=== PATIENT | male | born 1965 | race Caucasian/White ===

== ENCOUNTER 2016-08-17 18:32 | Emergency (ER) | payer BC ==
--- NOTE | 2016-08-17 19:13 | UC ---
Abdominal Pain Male HPI - HPI Summary HPI Summary: The patient comes in today for: 1. Lower right and left anterior chest pressure and right-sided abdominal pain : Onset: 2 hours ago. Palliative/provocative: Eating makes this worse. Sitting straight makes it worse. There is no radiation to the back. Quality: Pressure sensation of area of chest inferior and lateral to the nipples. Region: Right upper quadrant and right lower quadrant. Severity: "I can't walk upright." Sitting up the pain is 7/10 Time: Constant. Associated symptoms: Previous disease: He has been having mild stomach aches after eating for about 1.5 weeks. HE got back from vacation 5 days ago. He had a mild fever at that time and had fatigue. He lost his appetite. Eating made his pain worse. 15 years ago he had "stomach issues" but he had "hypersensitized stomach." Weight loss: 12 pounds but he had no appetite. Fevers: None known. Vomiting: None. Diarrhea: None. * - History of Current Complaint Chief Complaint: UCAbdominalPain Stated Complaint: ABDOMINAL PAIN Time Seen by Provider: 08/17/16 19:06 Hx Obtained From: Patient, Family/Technical Adjuster - Allergies/Home Medications Allergies/Adverse Reactions: Allergies Allergy/AdvReac Type Severity Reaction Status Date / Time No Known Allergies Allergy Verified 08/17/16 19:53 PMH/Surg Hx/FS Hx/Imm Hx Previously Healthy: Yes Endocrine History Of: Denies: Diabetes, Thyroid Disease, Hyperthyroidism, Hypothyroidism, Dyslipidemia Cardiovascular History Of: Denies: Cardiac Disorders, Hypertension, Pacemaker/ICD, Myocardial Infarction , Congestive Heart Failure, Atrial Fibrillation, Deep Vein Thrombosis, Bleeding Disorders Respiratory History Of: Denies: COPD, Asthma, Bronchitis, Pneumonia, Pulmonary Embolism GI/ History Of: Denies: Gastroesophageal Reflux, Ulcer, Gastrointestinal Bleed, Gall Bladder Disease, Kidney Stones, Diverticulitis, Renal Disease, Urosepsis Neurological History Of: Denies: TIA, CVA, Dementia, Seizures, Migraine Psychological History Of: Denies: Anxiety, Depression, Bipolar Disorder, Schizophrenia, Post Traumatic Stress Disorder Cancer History Of: Denies: Lung Cancer, Colorectal Cancer, Breast Cancer, Prostate Cancer, Cervical Cancer - Surgical History Surgical History: None - Family History Known Family History: Positive: Cardiac Disease Negative: Hypertension - Social History Occupation: Employed Full-time Alcohol Use: Occasionally Substance Use Type: Excessive Caffeine Smoking Status (MU): Never Smoked Tobacco Review of Systems Constitutional: Negative Skin: Negative Eyes: Negative ENT: Negative Respiratory: Negative, Cough - green phlegm. Cardiovascular: Chest Pain Gastrointestinal: Abdominal Pain Genitourinary: Dysuria All Other Systems Reviewed And Are Negative: Yes Physical Exam Triage Information Reviewed: Yes Appearance: Well-Nourished, Pain Distress - He will grimace and lean forward. Vital Signs: Initial Vital Signs Temp 97.6 F 08/17/16 18:43 Pulse 65 08/17/16 18:43 Resp 18 08/17/16 18:43 BP 144/83 08/17/16 18:43 Pulse Ox 100 08/17/16 18:43 Vital Signs Reviewed: Yes Eyes: Positive: Conjunctiva Clear. Negative: Discharge ENT: Positive: Hearing grossly normal. Negative: Pharyngeal erythema, Nasal congestion, Nasal drainage, TM bulging, TM dull, TM red, Tonsillar swelling, Tonsillar exudate Dental: Negative: Gross Decay/Caries @, Dental Fracture @ Neck: Positive: Supple, Nontender, No Lymphadenopathy. Negative: Nuchal Rigidity Respiratory: Positive: Chest non-tender, Lungs clear, No respiratory distress, No accessory muscle use. Negative: Accessory muscle use, Stridor Cardiovascular: Positive: RRR, No Murmur Abdomen Description: Positive: No Organomegaly, Guarding, McBurney's Point Tenderness, Peritoneal Signs - He had rebound in the RLQ. There is mild percussion tenderness. There is mild tenderness of the epigastric area. However, most of the pain is in the lower right quadrant.. Negative: Nontender , Distended Musculoskeletal: Positive: Strength Intact, ROM Intact, No Edema Neurological: Positive: Alert, Muscle Tone Normal Psychological: Positive: Normal Response To Family, Age Appropriate Behavior, Consolable Skin: Negative: rashes, breakdown Abd Pain Male Course/Dx - Differential Dx/Clinical Impression Provider Diagnoses: Abdominal pain, possible appendicitis, pancreatitis. - Physician Notification/Consults Discussed Patient Care With: Dr. Debbie Marcelo Time Discussed With Above Provider: 19:27 Discharge - Discharge Plan Condition: Stable Disposition: AGAINST MEDICAL ADVICE Additional Instructions: Patient is to go directly (via private car) to the [facility].
[2016-08-17 19:51] VITALS: BP 138/88
== END 2016-08-17 19:30 | disposition left against medical advice (07) ==
LOC: UCEAST 18:32
DX: R10.9 Unspecified abdominal pain (principal)
CPT/HCPCS: 99212; G0463

== ENCOUNTER 2016-08-22 11:17 | Inpatient (IN) | payer BC ==
[2016-08-22] MEDS ORDERED: NS 0.9% 1000 ML* 1,000 ML IV ONE (12:41)
[2016-08-22] MEDS ORDERED: HYDROmorphone* 1 MG/ML 1 ML SYR IV ONE (12:41)
[2016-08-22] MEDS ORDERED: Ondansetron INJ* 2 MG/ML VIAL IV ONE (12:41)
[2016-08-22 13:30] LABS: Hematocrit 41 % (42-52); Hemoglobin 14.2 g/dl (14.0-18.0); Mean Corpuscular HGB Conc 35 g/dl (31-36); Mean Corpuscular Hemoglobin 31 pg (27-31); Mean Corpuscular Volume 89 fL (80-94); Mean Platelet Volume 7 um3 (7.4-10.4); Red Cell Distribution Width 13 % (10.5-15); White Blood Count 15.1 10^3/ul (3.5-10.8)
[2016-08-22 13:32] LABS: Add Diff/Slide Review? Slide Review Added; Comments Flag Yes
--- NOTE | 2016-08-22 13:39 | RAD ---
HISTORY: Right upper quadrant pain COMPARISONS: None TECHNIQUE: Multiple transverse and longitudinal ultrasound images were obtained of the right upper quadrant of the abdomen using grayscale and color Doppler imaging. FINDINGS: LIVER: The liver is normal in shape, size, contour, and echogenicity. There are no focal parenchymal masses. There is normal hepatopedal flow of the portal vein on Doppler imaging. BILIARY TREE: There is no intrahepatic or extrahepatic biliary dilatation. The common duct measures 0.3 cm. GALLBLADDER: The gallbladder is well-visualized. There is no cholelithiasis, gallbladder wall thickening, pericholecystic fluid, or sonographic Tolentino sign. PANCREAS: The head of the pancreas is unremarkable. The tail of the pancreas is not well visualized secondary to overlying bowel gas. RIGHT KIDNEY: The right kidney is normal in shape, size, contour, and echogenicity. There is no hydronephrosis or nephrolithiasis. The right kidney measures 11.3 x 4.4 x 5.2 cm. AORTA AND IVC: The aorta and IVC are unremarkable. FLUID: There are no pleural effusions. There is no free fluid within the hepatorenal recess. OTHER FINDINGS: None. IMPRESSION: NO ACUTE SONOGRAPHIC PATHOLOGY OF THE VISUALIZED PORTION OF THE ABDOMEN
[2016-08-22 13:46] LABS: Albumin 3.8 g/dL (3.2-5.2); BUN/Creatinine Ratio 12.9 (8-20); C Reactive Protein 4.04 mg/L (< 5.00); Calcium 9.1 mg/dL (8.6-10.3); EGFR African American 100.2 (>60); EGFR Non-African American 77.9 (>60); Globulin 3.1 g/dL (2-4); Total Bilirubin 1.4 mg/dL (0.2-1.0); Total Protein 6.9 g/dL (6.4-8.9)
[2016-08-22] MEDS ORDERED: Iohexol 300* (CONTRAST) 10 ML SDV IV ONE (16:42)
--- NOTE | 2016-08-22 17:37 | RAD ---
INDICATION: Right lower quadrant pain. COMPARISON: Comparison is made with a prior CT of the abdomen and pelvis from August 17, 2016 and a prior right upper quadrant ultrasound from August 22, 2016. TECHNIQUE: A CT scan of the abdomen and pelvis was performed with intravenous and oral contrast following intravenous injection of 100 ml of Omnipaque 300 nonionic contrast. Contiguous axial sections were obtained from the lung bases through the symphysis pubis. Images were reconstructed in the coronal and sagittal planes. FINDINGS: There is mild dependent bilateral lower lobe subsegmental atelectasis. No pleural effusion is present. There is free intraperitoneal air noted in the upper abdomen. This also extends into the periportal region and is located adjacent to the anterior aspect of the stomach. There is also free air adjacent to the spleen. The liver and spleen are normal in size. There is a small 0.5 cm hypodense lesion in the posterior segment of the right hepatic lobe likely representing a cyst. There is mild decreased attenuation in the medial portion of the left hepatic lobe most consistent with focal fatty infiltration. The spleen appears to be within normal limits. No calcified gallstones are seen. The pancreas is normal in size. No ductal distention or calcifications are seen. The kidneys and adrenal glands are normal in size. No hydronephrosis is seen. No significant focal renal abnormality is seen. The aorta is normal in caliber and demonstrates homogeneous contrast opacification. No significant enlarged retroperitoneal lymph nodes are seen. The stomach, small and large bowel appear nondistended. There is stranding adjacent to the gallbladder and stomach this along with the free intraperitoneal air would be suspicious for a perforated gastric or duodenal ulcer. Recommend clinical correlation. The appendix is within normal limits. There is no evidence for diverticulitis or colitis. There is a trace amount of free intraperitoneal fluid in the right paracolic gutter and a small amount of free intraperitoneal fluid in the pelvis which is increased from the prior study. The results of this exam were discussed with the referring clinician. No significant focal osseous abnormality is seen. IMPRESSION: THERE IS FREE INTRAPERITONEAL FLUID AND AIR CONSISTENT WITH A PERFORATED VISCUS. THERE IS INTERSTITIAL STRANDING IN THE RIGHT UPPER QUADRANT ADJACENT TO THE GALLBLADDER AND STOMACH AND THEREFORE THE ETIOLOGY OF THE FREE INTRAPERITONEAL AIR IS LIKELY FROM A GASTRIC OR DUODENAL PERFORATION. RECOMMEND SURGICAL CONSULTATION.
[2016-08-22] MEDS ORDERED: Piperac/Tazob 3.375 gm in NS* 3.375 GM/100 ML BAG IVPB ONE (17:51)
--- NOTE | 2016-08-22 18:26 | HP ---
H&P (Free Text) History and Physical: Surgery H & P Asked by Dr. Johnson to evaluate a pt. with free air. Mr. Self is a 51 y.o. male who reports he returned from vacation on August 02 and was doing well till the when he started to feel flu symptoms and lost his appetite. He lost 12 lbs over 1 week and then on 08/17 he had an episode of severe abdominal pain. This brought him to the ER where a CT showed some stranding around the GB. He had been sent home on Bentyl, was set up for a sono, and was doing fairly well till today when he again was doubled over with pain. He has been able to tolerate some food. He denies joss nausea and has had no vomiting. He denies diarrhea or constipation, he denies dysuria. He describes the pain as severe cramping, and now he has pain in both shoulders that hurts worse with movement. He had some night sweats recently, but denies fever. A CT scan shows free air under the diaphragm. PMHx: denies Meds: cialis NKDA ROS: neg. FH: DM, obesity SH: neg. tob., daily ETOH, neg. IVDA PE: general: WDWN male in NAD Vital Signs 08/22/16 08/22/16 08/22/16 11:24 12:07 13:31 Temperature 98.1 F 98.1 F Pulse Rate 77 78 Respiratory 20 20 18 Rate Blood Pressure 163/103 158/99 (mmHg) O2 Sat by Pulse 100 98 Oximetry HEENT: anicteric sclerae, dry oral mucosa, neg. cervical adenopathy lungs: clear to ausc. heart: reg. abd: diminished BS, rigid with rebound. ext: neg. cyanosis, edema Laboratory Results - last 24 hr 08/22/16 08/22/16 08/22/16 13:20 13:20 13:20 WBC 15.1 H RBC 4.60 Hgb 14.2 Hct 41 L MCV 89 MCH 31 MCHC 35 RDW 13 Plt Count 327 MPV 7 L Neut % (Auto) 90.9 H Lymph % (Auto) 4.6 L [place] % (Auto) 3.9 Eos % (Auto) 0.1 Baso % (Auto) 0.5 Absolute Neuts (auto) 13.7 H Absolute Lymphs (auto) 0.7 L Absolute Monos (auto) 0.6 Absolute Eos (auto) 0 Absolute Basos (auto) 0.1 Absolute Nucleated RBC 0.01 Nucleated RBC % 0 Sodium 137 Potassium 4.0 Chloride 102 Carbon Dioxide 29 Anion Gap 6 BUN 13 Creatinine 1.01 Est GFR ( Amer) 100.2 Est GFR (Non-Af Amer) 77.9 BUN/Creatinine Ratio 12.9 Glucose 105 H Lactic Acid 0.7 Calcium 9.1 Total Bilirubin 1.40 H AST 13 ALT 13 Alkaline Phosphatase 40 C-Reactive Protein 4.04 Total Protein 6.9 Albumin 3.8 Globulin 3.1 Albumin/Globulin Ratio 1.2 Lipase 63 A/P: Acute abdomen with free air. Will proceed to OR for exploratory laparotomy, possible bowel resection, possible colostomy. I have explained to him the nature of surgery, its risks, benefits, and alternatives. He understands and agrees to proceed. Manjinder
--- NOTE | 2016-08-22 18:39 | ED ---
Randy, DoctorLi, scribed for Temo Johnson MD on 08/22/16 at 1216 . Abdominal Pain/Male - HPI Summary HPI Summary: 51 year old male arrived to [facility] c/o intermittent abdominal cramping beginning at 0930 today. He reports suddenly feeling severe cramping and diaphoresis while at work, and feeling like his stomach and the area below was "balled up." He took 600 mg ibuprofen at 0930 which helped alleviate his symptoms; he currently rates his pain as 6/10. Pt reports that his pain is marginally decreased when he is lying down. He denies any N/V/D. Pt was here with similar symptoms approximately 5 days ago; he was negative for appendicitis. He has been regularly taking Bentyl as prescribed by Dr. Marcelo ([facility]) last week and Ibuprofen. - History of Current Complaint Chief Complaint: EDAbdPain Stated Complaint: ABD PAIN Time Seen by Provider: 08/22/16 12:11 Hx Obtained From: Patient Onset/Duration: Gradual Onset, Lasting Days Timing: Intermittent Severity Initially: Moderate Severity Currently: Moderate Pain Intensity: 6 Pain Scale Used: 0-10 Numeric Location: Discrete At: RUQ, Discrete At: RLQ Character: Cramping Aggravating Factor(s): Food Alleviating Factor(s): OTC Analgesics Associated Signs And Symptoms: Positive: Diaphoresis. Negative: Nausea, Vomiting, Diarrhea - Allergies/Home Medications Allergies/Adverse Reactions: Allergies Allergy/AdvReac Type Severity Reaction Status Date / Time No Known Allergies Allergy Verified 08/17/16 19:53 Home Medications: Home Medications Tadalafil [Cialis] 5 mg PO DAILY PRN 08/22/16 [History Confirmed 08/22/16] PMH/Surg Hx/FS Hx/Imm Hx Endocrine/Hematology History: Denies: Hx Diabetes, Hx Thyroid Disease Cardiovascular History: Denies: Hx Congestive Heart Failure, Hx Deep Vein Thrombosis, Hx Hypertension , Hx Myocardial Infarction, Hx Pacemaker/ICD Respiratory History: Denies: Hx Asthma, Hx Chronic Obstructive Pulmonary Disease (COPD), Hx Lung Cancer, Hx Pneumonia, Hx Pulmonary Embolism GI History: Denies: Hx Gall Bladder Disease, Hx Gastrointestinal Bleed, Hx Ulcer, Hx Urosepsis History: Denies: Hx Kidney Stones, Hx Renal Disease Neurological History: Denies: Hx Dementia, Hx Migraine, Hx Seizures, Hx Transient Ischemic Attacks (TIA) Psychiatric History: Denies: Hx Anxiety, Hx Depression, Hx Schizophrenia, Hx Bipolar Disorder - Surgical History Surgery Procedure, Year, and Place: no surgical hx Infectious Disease History: Denies: Traveled Outside the [place] in Last 30 Days - Family History Known Family History: Positive: Cardiac Disease, Diabetes Negative: Hypertension - Social History Alcohol Use: Occasionally Hx Substance Use: No Substance Use Type: Reports: Excessive Caffeine Smoking Status (MU): Never Smoked Tobacco Review of Systems Positive: Skin Diaphoresis. Negative: Fever Positive: Abdominal Pain. Negative: Vomiting, Diarrhea, Nausea All Other Systems Reviewed And Are Negative: Yes Physical Exam Triage Information Reviewed: Yes Vital Signs On Initial Exam: Initial Vitals Temp Pulse Resp BP Pulse Ox 98.1 F 77 20 163/103 100 08/22/16 11:24 08/22/16 11:24 08/22/16 11:24 08/22/16 11:24 08/22/16 11:24 Vital Signs Reviewed: Yes Appearance: Positive: Well-Appearing, Pain Distress Skin: Positive: Warm, Skin Color Reflects Adequate Perfusion, Dry Head/Face: Positive: Normal Head/Face Inspection Eyes: Positive: Normal ENT: Positive: Normal ENT inspection Neck: Positive: Supple, Nontender Cardiovascular: Positive: RRR Abdomen Description: Negative: Nontender - tenderness in RUQ and RLQ Bowel Sounds: Positive: Present Musculoskeletal: Positive: Normal Neurological: Positive: Normal Psychiatric: Positive: Normal - [place] Coma Scale Coma Scale Total: 15 Diagnostics - Vital Signs Vital Signs Temp Pulse Resp BP Pulse Ox 08/22/16 12:07 98.1 F 78 20 158/99 98 08/22/16 11:24 98.1 F 77 20 163/103 100 - Laboratory Lab Results: Lab Results 08/22/16 08/22/16 08/22/16 Range/Units 13:20 13:20 13:20 WBC 15.1 H (3.5-10.8) 10^3/ul RBC 4.60 (4.0-5.4) 10^6/ul Hgb 14.2 (14.0-18.0) g/dl Hct 41 L (42-52) % MCV 89 (80-94) fL MCH 31 (27-31) pg MCHC 35 (31-36) g/dl RDW 13 (10.5-15) % Plt Count 327 (150-450) 10^3/ul MPV 7 L (7.4-10.4) um3 Neut % (Auto) 90.9 H (38-83) % Lymph % (Auto) 4.6 L (25-47) % [place] % (Auto) 3.9 (1-9) % Eos % (Auto) 0.1 (0-6) % Baso % (Auto) 0.5 (0-2) % Absolute Neuts (auto) 13.7 H (1.5-7.7) 10^3/ul Absolute Lymphs (auto) 0.7 L (1.0-4.8) 10^3/ul Absolute Monos (auto) 0.6 (0-0.8) 10^3/ul Absolute Eos (auto) 0 (0-0.6) 10^3/ul Absolute Basos (auto) 0.1 (0-0.2) 10^3/ul Absolute Nucleated RBC 0.01 10^3/ul Nucleated RBC % 0 Sodium 137 (133-145) mmol/L Potassium 4.0 (3.5-5.0) mmol/L Chloride 102 (101-111) mmol/L Carbon Dioxide 29 (22-32) mmol/L Anion Gap 6 (2-11) mmol/L BUN 13 (6-24) mg/dL Creatinine 1.01 (0.67-1.17) mg/dL Est GFR ( Amer) 100.2 (>60) Est GFR (Non-Af Amer) 77.9 (>60) BUN/Creatinine Ratio 12.9 (8-20) Glucose 105 H (70-100) mg/dL Lactic Acid 0.7 (0.5-2.0) mmol/L Calcium 9.1 (8.6-10.3) mg/dL Total Bilirubin 1.40 H (0.2-1.0) mg/dL AST 13 (13-39) U/L ALT 13 (7-52) U/L Alkaline Phosphatase 40 (34-104) U/L C-Reactive Protein 4.04 (< 5.00) mg/L Total Protein 6.9 (6.4-8.9) g/dL Albumin 3.8 (3.2-5.2) g/dL Globulin 3.1 (2-4) g/dL Albumin/Globulin Ratio 1.2 (1-3) Lipase 63 (11.0-82.0) U/L Result Diagrams: 08/22/16 13:20 08/22/16 13:20 Lab Statement: Any lab studies that have been ordered have been reviewed, and results considered in the medical decision making process. - CT CT A/P W [CT] CT Interpretation Completed By: Radiologist - IMPRESSION: THERE IS FREE INTRAPERITONEAL FLUID AND AIR CONSISTENT WITH A PERFORATED VISCUS. THERE IS INTERSTITIAL STRANDING IN THE RIGHT UPPER QUADRANT ADJACENT TO THE GALLBLADDER AND STOMACH AND THEREFORE THE ETIOLOGY OF THE FREE INTRAPERITONEAL AIR IS LIKELY FROM A GASTRIC OR DUODENAL PERFORATION. RECOMMEND SURGICAL CONSULTATION. - Ultrasound No standard instances Ultrasound Interpretation Completed By: Radiologist - Gallbladder US - IMPRESSION: NO ACUTE SONOGRAPHIC PATHOLOGY OF THE VISUALIZED PORTION OF THE ABDOMEN Re-Evaluation - Re-Evaluation First Eval Re-Evaluation Time: 14:56 Comment: Discussed US results w pt Second Eval Re-Evaluation Time: 17:44 Comment: Discussed CT Results with pt Abdominal Pain Fem Course/Dx - Course Course Of Treatment: Mr. Self had a return of his pain that he was seen here for 5 days ago. He again had a leukocytocis and his pain was not easy to control so I got a repeat CT scam which showed a likely perforation. - Diagnoses Provider Diagnoses: Peritonitis - Provider Notifications Discussed Care Of Patient With: 1732: Discussed care of pt with Dr. Kay ( Surgery) Instructed by Provider To: Will See In ED - Critical Care Time Critical Care Time: 30-74 min Discharge - Discharge Plan Condition: Stable Disposition: ADMITTED TO [facility] Referrals: Antoinette Matias MD [Primary Care Provider] - The documentation as recorded by the Doctor yancey Tahera accurately reflects the service I personally performed and the decisions made by me, Temo Johnson MD.
[2016-08-22] MEDS ORDERED: Midazolam* 1 MG/ML 2 ML VIAL (2 MG) ONE (19:28)
[2016-08-22] MEDS ORDERED: fentaNYL* 50 MCG/ML 5 ML VIAL (250 MCG VIAL) ONE (19:28)
[2016-08-22] MEDS ORDERED: Lidocaine 2% PF * 5 ML VIAL ONE (20:00)
[2016-08-22] MEDS ORDERED: Ondansetron INJ* 2 MG/ML VIAL ONE (20:00)
[2016-08-22] MEDS ORDERED: Dexamethasone IV* 4 MG/ML 1 ML (4 MG) ONE (20:00)
[2016-08-22] MEDS ORDERED: Succinylcholine* 20 MG/ML 10 ML VIAL ONE (20:00)
[2016-08-22] MEDS ORDERED: Propofol* 10 MG/ML 20 ML BTL IV PUSH ONE (20:00)
[2016-08-22] MEDS ORDERED: EPHEDrine (Pressors)* 50 MG/ML VIAL ONE (20:07)
[2016-08-22] MEDS ORDERED: Cisatracurium* 2 MG/ML MDV 5 ML ONE (20:15)
[2016-08-22] MEDS ORDERED: fentaNYL* 50 MCG/ML 2 ML VIAL (100 MCG VIAL) ONE ×2 (20:51→21:13)
[2016-08-22] MEDS ORDERED: Ondansetron INJ* 2 MG/ML VIAL IV PRN (20:59)
[2016-08-22] MEDS ORDERED: Pantoprazole IV* 40 MG IV ONE (21:00)
[2016-08-22] MEDS ORDERED: Ketorolac INJ* 30 MG/ML 1 ML VIAL IV PRN (21:10)
[2016-08-22] MEDS ORDERED: Metoclopramide IV* 5 MG/ML 2 ML VIAL IV PRN (21:10)
[2016-08-22] MEDS ORDERED: Scopolamine 1.5 mg* PATCH TRANSDERM PRN (21:10)
[2016-08-22] MEDS ORDERED: HYDROmorphone* 1 MG/ML 1 ML SYR ONE (21:13)
[2016-08-22] MEDS ORDERED: Ketorolac INJ* 30 MG/ML 1 ML VIAL ONE (21:13)
[2016-08-22] MEDS: fentaNYL* 50 MCG/ML 2 ML VIAL (100 MCG VIAL) IV PRN ×4 (21:18→22:05)
[2016-08-22] MEDS: HYDROmorphone* 1 MG/ML 1 ML SYR IV PRN ×3 (21:35→22:25)
[2016-08-22] MEDS: D5W 1/2 NS KCl 20 Meq 1000 ML* 1,000 ML IV SCH (22:53)
[2016-08-22] MEDS ORDERED: Pantoprazole IV* 40 MG ONE (23:50)
[2016-08-22] MEDS: Pantoprazole IV* 80 MG in NS 0.9% 250 ML* 250 ML IVPB SCH (23:59)
[2016-08-23] MEDS: Piperac/Tazob 3.375 gm in NS* 3.375 GM/100 ML BAG IVPB SCH ×3 (00:16→16:31)
[2016-08-23] MEDS: Morphine INJ* 2 MG/ML 1 ML SYRINGE IV PRN ×9 (02:43→21:15)
[2016-08-23] MEDS: D5W 1/2 NS KCl 20 Meq 1000 ML* 1,000 ML IV SCH ×3 (05:36→21:07)
[2016-08-23 05:59] LABS: Hematocrit 35 % (42-52); Hemoglobin 12.3 g/dl (14.0-18.0); Mean Corpuscular HGB Conc 35 g/dl (31-36); Mean Corpuscular Hemoglobin 31 pg (27-31); Mean Corpuscular Volume 88 fL (80-94); Mean Platelet Volume 7 um3 (7.4-10.4); Red Blood Count 3.98 10^6/ul (4.0-5.4); Red Cell Distribution Width 13 % (10.5-15); White Blood Count 11.4 10^3/ul (3.5-10.8)
[2016-08-23] MEDS: Pantoprazole IV* 80 MG in NS 0.9% 250 ML* 250 ML IVPB SCH ×4 (07:58→21:11)
--- NOTE | 2016-08-23 12:23 | SURGPN ---
Subjective - Introduction -: Reports feeling better today. Pain is tolerable, denies N/V, fever or chills. Mostly curious to know the exact etiology of his condition. - Medications -: Active Medications Generic Name Dose Route Start Last Admin Trade Name Freq PRN Reason Stop Dose Admin Potassium Chloride/Dextrose 1,000 mls @ 150 mls/hr 08/22/16 21:00 08/23/16 05 :36 D5w 1/2 Ns Kcl 20 Meq 1000 Ml* IV 150 mls/hr PER RATE SYLVAIN Administration Pantoprazole Sodium 80 mg/ 250 mls @ 25 mls/hr 08/22/16 21:00 08/23/16 11:22 Sodium Chloride IVPB 25 mls/hr Q10H SYLVAIN Administration Piperacillin Sod/Tazobactam Sod 3.375 gm in 100 mls @ 25 mls/hr 08/23/16 00: 00 08/23/16 08:30 Zosyn 3.375 Gm In Ns Premix* IVPB 25 mls/hr Q8H SYLVAIN Administration Morphine Sulfate 2 mg 08/22/16 20:59 08/23/16 11:23 Morphine Inj (Syringe)* IV 2 mg Q1H PRN Administration PAIN - MILD Ondansetron HCl 4 mg 08/22/16 20:59 Zofran Inj* IV Q4H PRN NAUSEA Objective - Objective -: Awake and alert, comfortable on bed, in NAD. - Intake and Output -: Intake & Output 08/21/16 08/22/16 08/23/16 08/24/16 06:59 06:59 06:59 06:59 Intake Total 1100 Output Total 2675 Balance -1575 Weight 176 lb Intake: IV Fluids 978 D5 1/2 NS w/ 20 MeQ K 978 IVPB 122 Zosyn 122 Oral 0 Output: NG Tube Drainage Amount 175 Matta 2500 Other: Estimated Void Medium Surgical Physical Exam - Comments -: VSS, afebrile Lungs CTA bilat. Heart RRR, no murmurs Abdomen soft, non-distended, moderate incisional tenderness. Dressing clean and dry. No guarding or rigidity. Labs noted, WBCs down Assessment and Plan - Assessment -: A 51 y/o male, POD#1, s/p exploratory laparotomy with repair of perforated ulcer with Dylan's patch, stable. - Plan Additional Comments: Keep NPO GI and DVT prophylaxis Ambulate as tolerated
--- NOTE | 2016-08-23 16:41 | PN ---
Progress Note - Progress Note Note: Surgery Mr. Self reports he has incisional pain, but otherwise feels ok. Will leave NGT in for now, if drainage down in AM consider clamping tube. Will check labs in AM. Manjinder
--- NOTE | 2016-08-23 17:12 | OP ---
DATE OF OPERATION: 08/22/16 - ROOM #353 DATE OF : 65 SURGEON: Augusta Kay MD EXECUTIVE DIRECTOR SHELTERED WORKSHOP: There was no assistant community director for this case. ANESTHESIOLOGIST: Ashley Lowery MD ANESTHESIA: General PRE-OP DIAGNOSIS: Perforated viscus. POST-OP DIAGNOSIS: Perforated duodenal ulcer. OPERATIVE PROCEDURE: Exploratory laparotomy and Dylan patch repair of perforated duodenal ulcer. INDICATIONS: This patient is a 51-year-old male who presented to the emergency room with abdominal pain consistent with acute abdomen. CT scan showed free air prompting to plan for surgical intervention DESCRIPTION OF PROCEDURE: He was brought to the operating room, placed on the OR table in the supine position and given general anesthesia. The abdomen was then prepped and draped in the usual sterile fashion. After making an incision , subcutaneous tissue was divided with electrocautery through the fascia, which was incised and the abdomen was entered. It should be mentioned that this incision was in the upper midline. Reinspection of the abdomen revealed no obvious abnormalities of the small intestine, which was eviscerated to run it from the terminal ileum to the ligament of Treitz. The large intestine was palpated and no abnormalities were identified and then looking above the colon in the gastrocolic ligament, it became evident that the area of inflammation was the duodenum. Brief dissection in this area revealed some adhesions of omentum to the duodenum and exposed the perforated ulcer. This was Lembert closed with 3-0 silk stitches and then a Dylan patch was fashioned out of tongue of omentum, which was brought up over the opening and secured in place with 3-0 silk stitches. The abdomen was then copiously irrigated with saline and the irrigation was evacuated and then closure was accomplished which was done with #1 Biosyn in a continuous fashion and the skin was closed with juan after irrigating the subcutaneous tissue. All sponge and instrument counts were correct. A dry sterile dressing was applied. He tolerated the procedure well and was transferred to recovery in a stable condition. CC: [facility]; Antoinette Matias MD* [id number]/[facility] #: [id number] MTDD
[2016-08-24] MEDS: Morphine INJ* 2 MG/ML 1 ML SYRINGE IV PRN ×5 (02:20→20:30)
[2016-08-24] MEDS: Pantoprazole IV* 80 MG in NS 0.9% 250 ML* 250 ML IVPB SCH ×4 (03:12→18:28)
[2016-08-24] MEDS: D5W 1/2 NS KCl 20 Meq 1000 ML* 1,000 ML IV SCH ×3 (03:51→18:29)
[2016-08-24 06:19] LABS: Mean Platelet Volume 7 um3 (7.4-10.4)
[2016-08-24 06:27] LABS: Hematocrit 37 % (42-52); Hemoglobin 12.7 g/dl (14.0-18.0); Mean Corpuscular HGB Conc 35 g/dl (31-36); Mean Corpuscular Hemoglobin 31 pg (27-31); Mean Corpuscular Volume 90 fL (80-94); Red Blood Count 4.09 10^6/ul (4.0-5.4); Red Cell Distribution Width 13 % (10.5-15); White Blood Count 9.8 10^3/ul (3.5-10.8)
[2016-08-24 06:36] LABS: Albumin 3.2 g/dL (3.2-5.2); BUN/Creatinine Ratio 3.8 (8-20); Calcium 8.5 mg/dL (8.6-10.3); EGFR African American 95.8 (>60); EGFR Non-African American 74.5 (>60); Potassium 3.9 mmol/L (3.5-5.0); Total Bilirubin 1.7 mg/dL (0.2-1.0); Total Protein 6.2 g/dL (6.4-8.9)
[2016-08-24] MEDS ORDERED: Pantoprazole IV* 40 MG ONE (07:31)
[2016-08-24] MEDS: Piperac/Tazob 3.375 gm in NS* 3.375 GM/100 ML BAG IVPB SCH ×3 (07:38→16:13)
--- NOTE | 2016-08-24 09:11 | PN ---
Progress Note - Progress Note Note: Surgery Mr. Self reports he feels "a lot better". He is hungry, but hasn't passed flatus yet. Vital Signs 08/23/16 08/23/16 08/23/16 09:23 10:23 11:04 Temperature Pulse Rate Respiratory 16 16 10 Rate Blood Pressure (mmHg) O2 Sat by Pulse Oximetry 08/23/16 08/23/16 08/23/16 11:19 11:23 12:23 Temperature 98.5 F Pulse Rate 70 Respiratory 11 16 16 Rate Blood Pressure 132/66 (mmHg) O2 Sat by Pulse 98 Oximetry 08/23/16 08/23/16 08/23/16 14:15 15:15 15:26 Temperature 99.8 F Pulse Rate 67 Respiratory 16 16 16 Rate Blood Pressure 126/69 (mmHg) O2 Sat by Pulse 98 Oximetry 08/23/16 08/23/16 08/23/16 17:42 18:42 18:53 Temperature Pulse Rate Respiratory 16 16 16 Rate Blood Pressure (mmHg) O2 Sat by Pulse Oximetry 08/23/16 08/23/16 08/23/16 19:21 19:53 20:29 Temperature 99.6 F Pulse Rate 73 Respiratory 15 16 16 Rate Blood Pressure 140/71 (mmHg) O2 Sat by Pulse 96 Oximetry 08/23/16 08/23/16 08/23/16 20:32 21:15 22:15 Temperature Pulse Rate Respiratory 16 16 16 Rate Blood Pressure (mmHg) O2 Sat by Pulse Oximetry 08/23/16 08/24/16 08/24/16 23:54 02:20 03:20 Temperature 99.3 F Pulse Rate 67 Respiratory 16 16 16 Rate Blood Pressure 130/68 (mmHg) O2 Sat by Pulse 97 Oximetry 08/24/16 08/24/16 08/24/16 03:21 05:56 06:56 Temperature 98.7 F Pulse Rate 65 Respiratory 18 16 16 Rate Blood Pressure 131/63 (mmHg) O2 Sat by Pulse 96 Oximetry 08/24/16 08/24/16 07:27 08:34 Temperature 98.4 F Pulse Rate 66 Respiratory 12 16 Rate Blood Pressure 129/73 (mmHg) O2 Sat by Pulse 96 Oximetry Abd: good BS, soft, tender near incision Incision: clean and dry Intake & Output 08/23/16 08/24/16 08/24/16 22:59 06:59 14:59 Intake Total 1040 1253 427 Output Total 800 1650 Balance 240 -397 427 Intake: IV Fluids 1040 1253 427 D5 1/2 NS w/ 20 MeQ K 1040 979 Protonix 427 Zosyn 274 Oral 0 0 Output: NG Tube Drainage Amount 250 Urine 800 1400 Other: # Bowel Movements 0 Laboratory Results - last 24 hr 08/24/16 08/24/16 05:46 05:46 WBC 9.8 RBC 4.09 Hgb 12.7 L Hct 37 L MCV 90 MCH 31 MCHC 35 RDW 13 Plt Count 275 MPV 7 L Neut % (Auto) 75.0 Lymph % (Auto) 13.7 L Pitt % (Auto) 9.3 H Eos % (Auto) 1.5 Baso % (Auto) 0.5 Absolute Neuts (auto) 7.3 Absolute Lymphs (auto) 1.3 Absolute Monos (auto) 0.9 H Absolute Eos (auto) 0.1 Absolute Basos (auto) 0 Absolute Nucleated RBC 0.01 Nucleated RBC % 0.1 Sodium 136 Potassium 3.9 Chloride 102 Carbon Dioxide 28 Anion Gap 6 BUN 4 L Creatinine 1.05 Est GFR ( Amer) 95.8 Est GFR (Non-Af Amer) 74.5 BUN/Creatinine Ratio 3.8 L Glucose 100 Calcium 8.5 L Total Bilirubin 1.70 H AST 14 ALT 22 Alkaline Phosphatase 38 Total Protein 6.2 L Albumin 3.2 Globulin 3.0 Albumin/Globulin Ratio 1.1 Prealbumin 15 L A/P: POD#2 s/p ex lap, patch of ulcer; doing well. Cont. NGT for now. If passes flatus and NGT drainage decreases, can consider clamp of tube. CLFoster
[2016-08-25] MEDS: Piperac/Tazob 3.375 gm in NS* 3.375 GM/100 ML BAG IVPB SCH ×3 (00:02→15:49)
[2016-08-25] MEDS: Morphine INJ* 2 MG/ML 1 ML SYRINGE IV PRN (00:04)
[2016-08-25] MEDS: Pantoprazole IV* 80 MG in NS 0.9% 250 ML* 250 ML IVPB SCH ×5 (00:13→19:47)
[2016-08-25] MEDS: D5W 1/2 NS KCl 20 Meq 1000 ML* 1,000 ML IV SCH ×3 (01:16→22:55)
[2016-08-26] MEDS: Piperac/Tazob 3.375 gm in NS* 3.375 GM/100 ML BAG IVPB SCH ×3 (00:02→17:03)
[2016-08-26] MEDS: Pantoprazole IV* 80 MG in NS 0.9% 250 ML* 250 ML IVPB SCH ×3 (02:08→13:06)
[2016-08-26] MEDS: D5W 1/2 NS KCl 20 Meq 1000 ML* 1,000 ML IV SCH (05:44)
--- NOTE | 2016-08-26 09:38 | PN ---
Progress Note - Progress Note Note: Surgery Mr. Aramis cuevas. Moved bowels this morning. Vital Signs 08/25/16 08/25/16 08/25/16 11:43 15:32 19:01 Temperature 97.8 F 99.1 F 99.0 F Pulse Rate 67 64 69 Respiratory 16 16 16 Rate Blood Pressure 145/73 129/71 136/74 (mmHg) O2 Sat by Pulse 98 95 99 Oximetry 08/25/16 08/25/16 08/26/16 21:30 23:54 03:48 Temperature 99.2 F 98.7 F Pulse Rate 67 65 Respiratory 16 16 16 Rate Blood Pressure 145/72 124/63 (mmHg) O2 Sat by Pulse 98 96 Oximetry 08/26/16 08/26/16 07:53 08:00 Temperature 98.7 F Pulse Rate 69 Respiratory 15 15 Rate Blood Pressure 125/76 (mmHg) O2 Sat by Pulse 97 Oximetry He is up ambulating, I did not examine. Intake & Output 08/25/16 08/26/16 08/26/16 22:59 06:59 14:59 Intake Total 1275 1373 Output Total 650 1000 0 Balance 625 373 0 Intake: IV Fluids 1167 1263 D5W 1/2 NS 20 meq KCL 1167 980 Protonix 283 IVPB 108 110 Zosyn 108 110 Oral 0 Output: Urine 650 1000 0 Other: # Bowel Movements 0 A/P: POD#4 Making good progress. Will start diet. Okay to shower. CLFoster
[2016-08-27] MEDS: Piperac/Tazob 3.375 gm in NS* 3.375 GM/100 ML BAG IVPB SCH ×2 (00:07→07:57)
[2016-08-27] MEDS ORDERED: Pantoprazole IV* 40 MG ONE (01:26)
[2016-08-27] MEDS: Pantoprazole IV* 80 MG in NS 0.9% 250 ML* 250 ML IVPB SCH (01:31)
[2016-08-27] MEDS: D5W 1/2 NS KCl 20 Meq 1000 ML* 1,000 ML IV SCH ×2 (06:26→20:08)
--- NOTE | 2016-08-27 08:32 | PN ---
Progress Note - Progress Note Note: Surgery Mr. Self reports some mild pain in the right and left lower quadrants after eating last night, but it has subsided. He denies other problems. Vital Signs 08/26/16 08/26/16 08/26/16 11:53 19:12 20:33 Temperature 99.1 F 99.0 F Pulse Rate 73 75 Respiratory 15 14 16 Rate Blood Pressure 129/76 141/69 (mmHg) O2 Sat by Pulse 99 99 Oximetry 08/27/16 08/27/16 08/27/16 00:03 03:46 07:35 Temperature 98.6 F 97.7 F 97.9 F Pulse Rate 62 54 60 Respiratory 18 16 22 Rate Blood Pressure 131/82 119/74 137/75 (mmHg) O2 Sat by Pulse 98 98 100 Oximetry 08/27/16 08/27/16 07:46 08:00 Temperature Pulse Rate Respiratory 18 18 Rate Blood Pressure (mmHg) O2 Sat by Pulse Oximetry Abd: good BS, soft, tender near incision Incision: clean and dry; no signs infection. Intake & Output 08/26/16 08/27/16 08/27/16 22:59 06:59 14:59 Intake Total 2332 1391 Output Total 1450 775 Balance 882 616 Intake: IV Fluids 1391 D5W 1/2 NS 20 meq KCL 971 Protonix 203 Zosyn 217 IVPB 1332 D5W 1/2 NS 20 meq KCL 1000 Protonix 332 Oral 1000 Output: Urine 1450 775 A/P: POD#5 s/p nuria patch repair perforated duodenal ulcer. Will switch to po protonix, pain meds. If tolerates, can go home tomorrow. Will d/c abx. We discussed at length that he will need to have GI f/u. CLFoster
[2016-08-27] MEDS ORDERED: oxyCODONE/Acetamin 5/325 MG* TAB PO PRN ×2 (08:33)
[2016-08-27] MEDS: Omeprazole CAP* 20 MG PO SCH ×2 (09:29→16:11)
--- NOTE | 2016-08-27 16:31 | CONS ---
GASTROENTEROLOGY CONSULT: DATE: 08/27/16 REFERRING PHYSICIANS: Dr. Antoinette Matias, Dr. Augusta Kay. REASON FOR CONSULT: Perforated duodenal ulcer, cause unknown. 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 Ultrasound of the gallbladder was negative, but CT scan showed free air and he had surgical exploration finding of perforated duodenal ulcer. Now 5 days postop, he is on oral PPIs and has begun to eat and is feeling better. The surgery was a patch with nothing resected. Curiously, he does not have any long-term history of gastrointestinal problems and does not take aspirin or NSAIDs other than a couple of times a year if he feels sore from working out. He does state that he was on vacation, scuba diving last week of June and felt fine while there. On 08/03/16, they flew back to [facility]. Flights were canceled and he spent a stressful night awake near [facility]. He did make it back home by August 05. They had a new puppy in their house and he recalls the puppy looking his face extensively. Two or three days later, he was having some feverishness and thought he had the flu. There was also some low back pain. There was no vomiting. He then had about a week of no appetite, but then started feeling better. He did have then abruptly the doubling over pain on 08/17/16 and he went to Urgent Care and was transported to the ER, where he had a CT scan to rule out appendicitis. Nothing particular was seen. He was sent home with some Bentyl then, as he had used that before, maybe 15 years ago. He then was okay for a few days until the abrupt onset of the excruciating pain again on the morning of August 22. He forcefully denies any long-term history of gastrointestinal problems and denies heartburn, acid indigestion, etc. He does state that he gave up having [employer] or similar large meals late at night because they would cause him to have a restless sleep. He does not take NSAIDs and is familiar with the trade names. PAST MEDICAL HISTORY: 1. Bone graft, right wrist, age 15. 2. Vasectomy, 1998. 3. Duodenal ulcer, status post exploratory laparotomy, 08/22/16. FAMILY HISTORY: He has a brother, 8 years younger, who is in good health. There is no family history of gastro-intestinal problems or ulcers. SOCIAL HISTORY: He is from [facility] [place], moved here about [address] Ceasar Cortes for an annual physical. He says Dr. Cortes has never had to treat him for any major illness. His job does not involve much travel. He has a long-term girlfriend. REVIEW OF SYSTEMS: He denies any history of seizures, palpitations, syncope, chest pain, UT. He does like to exercise quite a bit. He restricted carbohydrate and took off 10 pounds in May. They do have a couple of cats at home. He drinks 3 or 4 beers a night. There is no history hematuria, renal stone, hepatitis, or jaundice. In about 1999, he recalls developing some abdominal distress and a doctor in [place] checked him for H. pylori (he does not know which type of test) and prescribed belladonna that he took for 5 days and then it was gone. In subsequent years, he has not needed any kind of [id number] prescription, gastrointestinal remedy. PHYSICAL EXAM: He is a slender, tanned, middle-aged man, appearing in good shape, in no distress. He speaks rapidly and forcefully, seeming to emote curiosity and frustration with the mysterious nature of his illness. Lungs are clear. His abdomen is symmetric with an upper midline scar with about 15 juan. Bowel sounds are active. The abdomen is firm without tenderness. Extremities show no edema. LABORATORY DATA: CBC, 08/17/16, showed hemoglobin 14.4, hematocrit 41, MCV 87, platelets 276. IMPRESSION: Duodenal ulcer disease, cause unclear. Helicobacter pylori is becoming a little unusual and certainly in someone who has been told he does not harbor it in his mid 30s, having it at age 51 is unusual and then of course , it would usually manifest with chronic symptoms in someone who is healthy and neurologically intact. Once he has recovered from this fully, testing will be done for it and probably upper endoscopy. His NSAID exposure history is unimpressive. This raises question of more unusual cause and a fasting gastrin will be sent as its value should not be affected by 4 or 5 days of PPIs. [id number]/[facility] #: [id number] [facility]OSPITALKatie
[2016-08-28 06:40] LABS: Ferritin 266.4 ng/mL (24-336)
[2016-08-28] MEDS: Omeprazole CAP* 20 MG PO SCH (08:18)
[2016-08-28] MEDS: D5W 1/2 NS KCl 20 Meq 1000 ML* 1,000 ML IV SCH (10:08)
--- NOTE | 2016-08-28 12:23 | DS ---
Pain is minimal and he is tolerating solids. exam: Vital Signs Temp 98.4 F 08/28/16 07:31 Pulse 60 08/28/16 07:31 Resp 18 08/28/16 08:00 BP 143/82 08/28/16 07:31 Pulse Ox 99 08/28/16 07:31 NAD incision c/d/i no erythema. Soft and minimally tender. Intake & Output 08/27/16 08/28/16 08/28/16 18:59 06:59 18:59 Intake Total 2114 733 320 Output Total 1700 1725 Balance 414 -992 320 Intake: IV Fluids 687 493 D5W 1/2 NS 20 meq KCL 508 493 Protonix 179 IVPB 105 Zosyn 105 Oral 1322 240 320 Output: Urine 1700 1725 IMP: s/p open repair of perf ulcer PLAN: home today. Cont PPI. RTO 3-5 days. GI to f/u as outpt.
[2016-08-28 12:46] VITALS: BP 142/71
== END 2016-08-28 14:40 | disposition home or self-care (01) | DRG 223 ==
LOC: ED 11:17 → OR 20:32 → SSU 22:42
PROVIDERS: ADMIT Surgery; ATTEND Surgery
PROC: 0D9670Z Drainage of Stomach with Drainage Device, Via Natural or Artificial Opening (ICD-10-PCS; 2016-08-22)
PROC: 0DU907Z Supplement Duodenum with Autologous Tissue Substitute, Open Approach (ICD-10-PCS; principal; 2016-08-22 20:15)
DX: K26.1 Acute duodenal ulcer with perforation (principal); Z83.3 Family history of diabetes mellitus
CPT/HCPCS: 36415; 74177; 76705; 80053; 82728; 82941; 83540; 83550; 83605; 83690; 84134; 85025; 86140; 94760; A9270-GY; J0330; J1100; J1170; J1885; J2250; J2270; J2405; J2543; J2704; J3010; Q9967

== ENCOUNTER 2019-07-11 07:32 | Day surgery (SDC) | payer BC ==
[~2019-07-11 07:32] MED LIST: Buffered Lidocaine 1% SYRIN* 1 ML/SYRINGE INTRADERM ONE; Lactated Ringers 1000 ML Bag* 1,000 ML IV SCH
[2019-07-11] MEDS ORDERED: Bupivacaine 0.25% SDV* 30 ML ONE (08:01)
[2019-07-11] MEDS ORDERED: Famotidine IV* 10 MG/ML 2 ML (20 mg) ONE (08:38)
[2019-07-11] MEDS ORDERED: Lidocaine 2% PF * 5 ML VIAL ONE (08:41)
[2019-07-11] MEDS ORDERED: Ketorolac INJ* 30 MG/ML 1 ML VIAL ONE (08:41)
[2019-07-11] MEDS ORDERED: Propofol* 10 MG/ML 20 ML BTL ONE (08:41)
[2019-07-11] MEDS ORDERED: Dexamethasone IV* 4 MG/ML 1 ML (4 MG) ONE (08:41)
[2019-07-11] MEDS ORDERED: Midazolam* 1 MG/ML 2 ML VIAL (2 MG) ONE (08:42)
[2019-07-11] MEDS ORDERED: fentaNYL* 50 MCG/ML 2 ML VIAL (100 MCG VIAL) ONE (08:42)
[2019-07-11] MEDS ORDERED: DiMENhydriNATE IV* 50 MG/ML VIAL IV PUSH PRN (09:14)
[2019-07-11] MEDS ORDERED: Naloxone* 0.4 MG/ML 1 ML VIAL IV PRN (09:14)
[2019-07-11] MEDS ORDERED: Ondansetron INJ* 2 MG/ML VIAL IV PRN (09:14)
[2019-07-11] MEDS ORDERED: Levalbuterol 0.63MG/3ML NEB* UNIT OF USE INH PRN (09:14)
[2019-07-11] MEDS ORDERED: Acetaminophen TAB* 325 MG PO PRN (09:14)
[2019-07-11] MEDS ORDERED: HYDROcodone/ACETAMIN 5-325 MG* 1 TAB PO PRN (09:14)
[2019-07-11 10:23] VITALS: BP 123/89
--- NOTE | 2019-07-11 17:09 | OP ---
DATE OF OPERATION: 07/11/19 [facility] DATE OF : 65 SURGEON: De Silva MD SKIP PIT WORKER: MERCEDEZ Gómez ANESTHESIOLOGIST: Dr. Woods. ANESTHESIA: General. PRE-OP DIAGNOSIS: Right carpal tunnel syndrome. POST-OP DIAGNOSIS: Right carpal tunnel syndrome. OPERATIVE PROCEDURE: Right endoscopic carpal tunnel release. INDICATIONS: Mr. Self has the aforementioned carpal tunnel continuing to be quite severe clinically. We talked about treatment options, risks, and benefits. He wanted to proceed with surgery. ESTIMATED BLOOD LOSS: 2 mL. COMPLICATIONS: None. FINDINGS: See above and below. DESCRIPTION OF PROCEDURE: Mr. Self was seen in the preoperative holding area. The correct site, side, and procedure were identified. We came back to the operating room. The arm was prepped and draped in the usual fashion and a time-out was performed. The arm was exsanguinated and the tourniquet inflated. I made a 1 cm transverse incision just ulnar to the palmaris longus tendon. The distal antebrachial fascia was spread transversely and split and then I placed a 2- prong skin hook under the fascia. I used a synovial stripper followed by the elevators to open up the carpal tunnel. The [employer] endoscopic carpal tunnel system was then brought in, and when I had it in the appropriate location, I elevated the blade and the release was carried out from distal to proximal. I confirmed the release distally. I then released the distal antebrachial fascia proximally with the tenotomy scissors. At this point, everything was looking good. Wound was irrigated out. Skin was closed with 4-0 Prolene suture. Soft dressing was applied and he was taken to the recovery room in stable condition. [id number]/[facility] #: [id number] MTDD
== END 2019-07-11 10:35 | disposition home or self-care (01) ==
LOC: OREAST 07:32
PROVIDERS: ATTEND Orthopaedic Surgery Hand Surgery
DX: G56.01 Carpal tunnel syndrome, right upper limb (principal); J45.909 Unspecified asthma, uncomplicated; K21.9 Gastro-esophageal reflux disease without esophagitis; Z79.51 Long term (current) use of inhaled steroids
CPT/HCPCS: J1100; J1885; J2250; J2704; J3010; J3490